=== PATIENT | male | born 1970 | race Caucasian/White ===

== ENCOUNTER 2024-05-28 06:54 | Day surgery (SDC) | payer BC, SELFPAY ==
[2024-05-28] VITALS (11 sets, daily range): BP systolic 96–118; BP diastolic 57–79; PULSE 45–67; RESP 10–18; TEMP 36.4–37; O2SAT 94–100; BMI 28.7
--- NOTE | 2024-05-28 07:06 | W.PM.H&PU ---
History & Physical Update History & Physical Update H&P Reviewed and patient assessed: No changes noted
[2024-05-28] MEDS: LACTATED RINGERS 1000 ML 1,000 ML 100 ML IV (07:25)
[2024-05-28] MEDS: SODIUM CHLORIDE 0.9 % (FLUSH) 10 ML SYRINGE IVF (07:31)
[2024-05-28] MEDS: CEFAZOLIN 2 GM in 0.9 % SODIUM CHLORIDE Mini-bag 100 ML IVPB (08:28)
--- NOTE | 2024-05-28 08:47 | PM.ORPRC ---
Procedure Note Date of procedure: 05/28/24 Procedure: PREOPERATIVE DIAGNOSIS: 1. Left knee medial meniscus tear POSTOPERATIVE DIAGNOSIS: 1. Left knee medial meniscus tear PROCEDURE: 1. Left knee arthroscopic partial medial meniscectomy SURGEON: Rod Sales M.D. BONUS CLERK: Ervin Reyes PA-C. Of note, an assistant housekeeping manager was critical for this case to aid in patient positioning, knee manipulation, instrument exchange, and closure. ANESTHESIA: Spinal EBL: 2ml TOURNIQUET: 30 min at 300 torr COMPLICATIONS: None evident INDICATIONS: The patient is a pleasant 53-year-old male who has experienced left knee pain particularly with any twisting or turning. Physical exam was concerning for medial meniscus tear, this was confirmed on MRI. Additionally, attempted nonoperative management has been tried, and failed. Thus, surgery was recommended. FINDINGS: Complex tear medial meniscus including unstable flap extending from the posterior horn to the midbody. Posterior root was intact. Lateral meniscus intact. ACL and PCL intact and robust. Grade 4 chondromalacia trochlear groove. Grade 3-4 chondromalacia patella. Grade 2-3 chondromalacia medial femoral condyle. Grade 1-2 lateral compartment. No loose bodies evident. DESCRIPTION OF PROCEDURE: After a thorough discussion of risks, benefits, and alternatives, the patient was brought to the operating room and placed upon the operating table. Induction of anesthesia was undertaken as previously noted. 2g iv Ancef was administered within 1 hr of incision preoperatively. Appropriate time-out was performed identifying proper patient, site, and procedure. The left lower extremity was prepped and draped in the appropriate sterile fashion using ChloraPrep. The limb was exsanguinated and tourniquet inflated. Anterolateral and anteromedial portals were established with an 11 blade, and a diagnostic arthroscopy was performed. This identified the findings as noted above. Following the diagnostic arthroscopy, a partial medial menisectomy was performed with the combination of basket forceps and a motorized shaver. Following this, the meniscus was re-probed and found to be stable. Approximately 25-33 % of the overall meniscus required resection. At this stage, the shaver was reinserted into the suprapatellar pouch and all remaining meniscal debris was evacuated. Instruments were removed, excess fluid was drained, and closure performed with 4-0 Monocryl with Steri-Strips. Dressings were applied, the tourniquet deflated, and the patient was awoken from anesthesia and transferred to the PACU in stable condition. PLAN: 1. Weightbear as tolerated operative extremity. Crutch / walker ambulation assistance PRN. Straight leg raise to be initiated starting tomorrow by the patient. 2. Ice, acetominophen and/or ibuprofen, and Oxycodone for pain as needed. 3. Knee range of motion and quad sets/straight leg raise regularly 4. Follow up with PA visit in 7-10 days. for a wound check. Initiate physical therapy at that time
[2024-05-28] MEDS: ROPIVACAINE 0.5% 30 ML 150 MG INJECTION (08:55)
--- NOTE | 2024-05-28 09:02 | P.ANES_ITS ---
Anesthesia Charges Start Date/Time Anesthesia Start Date: 05/28/24 Anesthesia Start Time: 08:07 Stop Date/Time Anesthesia Stop Date: 05/28/24 Anesthesia Stop Time: 09:00 Coding CPT Codes CPT Codes: ANESTH KNEE JOINT SURGERY - 77797 ([id number]) P1 - NORMAL HEALTHY PATIENT, QZ - REAL ESTATE UTILIZATION OFFICER SVC W/O LOOM DOFFER BY
--- NOTE | 2024-05-28 09:02 | W.ANESCHARGE ---
Anesthesia Charges Start Date/Time Anesthesia Start Date: 05/28/24 Anesthesia Start Time: 08:07 Stop Date/Time Anesthesia Stop Date: 05/28/24 Anesthesia Stop Time: 09:00 Coding CPT Codes CPT Codes: ANESTH KNEE JOINT SURGERY - 31106 ([id number]) P1 - NORMAL HEALTHY PATIENT, QZ - FILTRATION OPERATOR SVC W/O WILDLIFE REHABILITATOR BY
== END 2024-05-28 10:36 | disposition home or self-care (01) ==
LOC: OR 06:55
PROVIDERS: PCP Student in an Organized Health Care Education/Training Program; Visit Provider Orthopaedic Surgery Sports Medicine
PROC: (CPT 29870; principal; 2024-05-28 08:00)
DX: S83.232A Complex tear of medial meniscus, current injury, left knee, initial encounter (principal)
CPT/HCPCS: 29881; 01400; J0690; J1100; J1885; J2250; J2405; J2704; J2795; J3010; J7120

== ENCOUNTER 2024-06-04 09:43 | Outpatient (CLI) | payer BC, SELFPAY ==
--- NOTE | 2024-06-04 10:00 | CRLHL7_ITS ---
For Patients: As a result of the Century Cures Act, medical imaging exams and procedure reports are released immediately into your electronic medical record. You may view this report before your referring provider. If you have questions, please contact your health care provider. INDICATION: Left leg swelling and pain, left knee surgery COMPARISON: None. TECHNIQUE: Means-scale, color, and duplex Doppler imaging of the left lower extremity veins. Compression and augmentation attempted where anatomically and clinically feasible. FINDINGS: Laterality: Left Examined veins: Common femoral, proximal deep femoral, superficial femoral, popliteal, peroneal, posterior tibial Greater saphenous The examined veins are patent with normal grayscale appearance and normal compressibility where anatomically feasible. Normal color Doppler flow. Normal venous waveforms on duplex Doppler ultrasound with normal augmentation. There is an irregular fluid collection in the muscular compartment in the proximal calf that measures 6.2 x 1.1 x 3.9 cm. Along the left medial knee there is a longitudinal deep collection that measures 7.4 x 1.4 x 3.4 cm. Normal adjacent vascularity on ultrasound. The collections are mildly heterogeneous with some fluid and debris but no solid vascular component seen. The right common femoral vein is sampled for comparison and is normal. IMPRESSION: 1. No left lower extremity deep vein thrombosis. 2. There are 2 deep soft tissue collections in the left medial knee and proximal calf. In the setting of recent surgery, these may be hematomas or seromas. Low suspicion for superimposed infection given lack of adjacent substantial vascularity. Dictated by Lien Villar MD @ 06/04/2024 10:57:25 AM (Electronically Signed)
== END 2024-06-04 09:44 | disposition home or self-care (01) ==
LOC: US 09:44
PROVIDERS: PCP Student in an Organized Health Care Education/Training Program; Visit Provider Physician Assistant Surgical
DX: R22.42 Localized swelling, mass and lump, left lower limb (principal); Z98.890 Other specified postprocedural states; Z87.828 Personal history of other (healed) physical injury and trauma
CPT/HCPCS: 93971